=== PATIENT | female | born 1995 | race Caucasian/White ===

== ENCOUNTER 2023-04-12 23:47 | Emergency (ER) | payer OTHER ==
[2023-04-12 23:57] VITALS: TEMP 97.5
--- NOTE | 2023-04-13 00:05 | ERPHSYRPT ---
- History of Present Illness Time Seen by Provider: 04/13/23 00:05 Source: patient Exam Limitations: clinical condition Physician History: 28-year-old female presents emergency room with a 3-day history of left ear pain. She was seen at a nearby emergency room last night was told that she had blood in her eardrum and was prescribed antibiotic and told to take Tylenol and NSAIDs as needed for pain control. They were unable to get the antibiotic picked up today so she is not started any treatment at this time. Her pain is 10 out of 10 in severity and now surrounds her entire ear and into the bones of her face and skull. She has never had pain like this before. No fevers reported. She has had nausea and vomiting over the past 3 to 4 hours. Last time she took ibuprofen was approximately 5 PM. Timing/Duration: abrupt onset Severity: severe ENT Location: ear (L) Prearrival Treatment: over the counter meds Modifying Factors: Improves With: nothing Associated Symptoms: ear pain (L), chills, change in hearing, facial pain/swelling, headache, neck pain, swollen glands, No fever Allergies/Adverse Reactions: amoxicillin [From Augmentin] Adverse Reaction (Verified 04/13/23 00:06) clavulanic acid [From Augmentin] Adverse Reaction (Verified 04/13/23 00:06) - Review of Systems Constitutional: Chills Eyes: No Symptoms Ears, Nose, & Throat: Ear Pain (left), Ear Discharge (blood), Hearing Changes Respiratory: No Symptoms Cardiac: No Symptoms Abdominal/Gastrointestinal: Nausea, Vomiting Skin: No Symptoms Neurological: Headache - Nursing Vital Signs Nursing Vital Signs: Initial Vital Signs Temperature 97.5 F 04/12/23 23:55 Pulse Rate 99 H 04/12/23 23:55 Respiratory Rate 18 04/12/23 23:55 Blood Pressure 131/96 04/12/23 23:55 O2 Sat by Pulse Oximetry 99 04/12/23 23:55 Pain Scale Pain Intensity 3 - Physical Exam General Appearance: severe distress, alert Eye Exam: left eye: normal inspection, EOMI Ear Exam: right ear: auricle normal, canal normal, TM normal, left ear: bleeding, erythema, tenderness (left mastoid), TM perforation Nasal Exam: normal inspection, sinus tenderness Neck Exam: supple, full range of motion, lymphadenopathy (L), tender lateral Cardiovascular/Respiratory Exam: regular rate/rhythm, no respiratory distress Neurologic Exam: alert, oriented x 3, No disoriented, No motor weakness, No slurred speech Skin Exam: normal color, warm, dry, No rash SpO2 Interpretation: normal SpO2: 99 O2 Delivery: Room Air Ordered Tests: Active Orders 24 hr Category Date Time Status HEAD WITHOUT CONTRAST [CT] Stat Exams 04/13/23 00:08 Completed BMP Stat Lab 04/13/23 00:31 Completed CBC Stat Lab 04/13/23 00:31 Completed ESR [Erythrocyte Sedimentation Rate] Stat Lab 04/13/23 00:31 Completed Medication Summary Discontinued Medications Generic Name Dose Route Start Last Admin Trade Name Wendy PRN Reason Stop Dose Admin Hydrocodone Bitart/Acetaminophen 1 tablet 04/13/23 00:07 04/13/23 00:19 Hydrocodone/Acetamin 10-325 Mg Tablet PO 04/13/23 00:08 1 tablet STAT ONE Administration Hydrocodone Bitart/Acetaminophen Confirm 04/13/23 00:12 Hydrocodone/Acetamin 10-325 Mg Tablet Administered 04/13/23 00:13 Dose 1 tablet .ROUTE .STK-MED ONE Ceftriaxone Sodium 1,000 mg 04/13/23 00:09 04/13/23 00:19 Ceftriaxone Sodium 1000 Mg Inj Vial IM 04/13/23 00:10 1,000 mg STAT ONE Administration Ceftriaxone Sodium Confirm 04/13/23 00:13 Ceftriaxone Sodium 1000 Mg Inj Vial Administered 04/13/23 00:14 Dose 1,000 mg .ROUTE .STK-MED ONE Ceftriaxone Sodium/Dextrose 1 g in 50 mls @ 100 mls/hr 04/13/23 00:06 04/13/23 00:21 Rocephin 1 Gm-D5w 50 Ml Bag IV 04/13/23 00:35 Not Given STAT STA Ketorolac Tromethamine 60 mg 04/13/23 00:06 04/13/23 00:18 Ketorolac Tromethamine 30 Mg/Ml Inj IM 04/13/23 00:07 60 mg STAT ONE Administration Ketorolac Tromethamine Confirm 04/13/23 00:12 Ketorolac Tromethamine 30 Mg/Ml Inj Administered 04/13/23 00:13 Dose 60 mg .ROUTE .STK-MED ONE Lidocaine HCl Confirm 04/13/23 00:15 Lidocaine Hcl 1% 20 Ml Mdv 20 Ml Ml Administered 04/13/23 00:16 Dose 2 ml .ROUTE .STK-MED ONE Ondansetron HCl 4 mg 04/13/23 00:54 04/13/23 00:58 Zofran 4 Mg/Udtablet Orally Disintegrating PO 04/13/23 00:55 4 mg STAT ONE Administration Ondansetron HCl Confirm 04/13/23 00:57 Zofran 4 Mg/Udtablet Orally Disintegrating Administered 04/13/23 00:58 Dose 4 mg .ROUTE .STK-MED ONE Lab/Rad Data: Laboratory Result Diagrams 04/13/23 00:31 04/13/23 00:31 Laboratory Results 04/13/23 04/13/23 Range/Units 00:31 00:31 WBC 18.4 H (4.0-10.5) x10^3/uL RBC 4.81 (4.1-5.4) x10^6/uL Hgb 13.5 (12.0-16.0) g/dL Hct 42.4 (35-47) % MCV 88.1 (78-100) fL MCH 28.1 (26-32) pg MCHC 31.8 L (32-36) g/dL RDW 12.9 (11.5-14.0) % Plt Count 292 (150-450) x10^3/uL MPV 9.5 (7.5-11.0) fL ESR 31 H (0-20) mm/hr Sodium 140 (137-145) mmol/L Potassium 3.4 L (3.5-5.1) mmol/L Chloride 104 (98-107) mmol/L Carbon Dioxide 20 L (22-30) mmol/L Anion Gap 18.9 H (5-15) MEQ/L BUN 8 (7-17) mg/dL Creatinine 0.59 (0.52-1.04) mg/dL Estimated GFR > 60.0 ML/MIN Glucose 100 (74-106) mg/dL Calcium 9.4 (8.4-10.2) mg/dL - Progress Progress: improved Progress Note: 04/13/23 00:20 1.5cc of 2% lidocaine w/o epi placed in the ear canal. Pain down to 3/10 after Toradol, Archer 1g Rocephin given IM Spoke w/ Dr. Hernandez at 0203 who recommended consulting due to [facility] not having a surgeon who performs operations on the mastoid. 0320 I spoke w/ ENT from who reviewed the CT scan and felt that there was no bony involvement, no concern for mastoiditis. Recommended Ciprodex gtts. Counseled pt/family regarding: lab results, diagnosis, need for follow-up, rad results Medical Desision Making - Diagnostic Testing Diagnostic test were ordered, analyzed, and reviewed by me: Yes Radiological Interpretation: Interpreted by me, Reviewed by me, Teleradiologist Report - Risk of complications The pt has a mod risk of morbidity or mortality based on: Need for prescription drug management - Departure Departure Disposition: Home Clinical Impression: Hematotympanum of left ear, Otalgia of left ear, Mastoid pain, Otitis media Condition: Good Critical Care Time: No Referrals: DOCTOR,NO FAMILY [Primary Care Provider] - Follow up/PCP as directed ROCK HERNANDEZ [NON-STAFF PHY W/O PRIVILEGES] - Follow Up with PCP/3 days Instructions: Ruptured eardrum Prescriptions: Ciprofloxacin HCl/Dexameth [Ciproflox-Dexameth Otic Susp] 7.5 ml OT BID 7 Days Hydrocodone/Acetaminophen [Hydrocodone-Acetamin 10-325 mg] 1 tablet PO TID PRN #21 tablet MDD 3 tablets PRN Reason: Pain Cephalexin Mh 500 mg [Keflex 500 mg] 500 mg PO TID 7 Days #21 cap
[2023-04-13] MEDS ORDERED: TORAdol 30 mg Injection IM ONE (00:06)
[2023-04-13] MEDS ORDERED: ROCEPHIN 1 Gm-D5w 50 ml Bag** 1 G/50 ML IVPB IV STA (00:06)
[2023-04-13] MEDS ORDERED: HYDROCODONE-ACETAMIN 10-325 MG PO ONE (00:07)
[2023-04-13] MEDS ORDERED: Rocephin 1000 MG INJ IM ONE (00:09)
[2023-04-13] MEDS ORDERED: TORAdol 30 mg Injection ONE (00:12)
[2023-04-13] MEDS ORDERED: HYDROCODONE-ACETAMIN 10-325 MG ONE (00:12)
[2023-04-13] MEDS ORDERED: Rocephin 1000 MG INJ ONE (00:13)
[2023-04-13] MEDS ORDERED: XYLOCAINE 1% HCL 20 ML MDV ONE (00:15)
[2023-04-13 00:33] LABS: Hematocrit 42.4 % (35-47); Hemoglobin 13.5 g/dL (12.0-16.0); Mean Cell Volume 88.1 fL (78-100); Mean Corpuscular Hemoglobin 28.1 pg (26-32); Mean Corpuscular Hgb Concent. 31.8 g/dL (32-36); Mean Platelet Volume 9.5 fL (7.5-11.0); Platelet Count 292 x10^3/uL (150-450); Red Blood Count 4.81 x10^6/uL (4.1-5.4); Red Cell Distribution Width 12.9 % (11.5-14.0); White Blood Count 18.4 x10^3/uL (4.0-10.5)
[2023-04-13 00:41] LABS: Erythrocyte Sedimentation Rate 31 mm/hr (0-20)
[2023-04-13 00:46] LABS: ANION GAP 18.9 MEQ/L (5-15); BLOOD UREA NITROGEN 8 mg/dL (7-17); CHLORIDE 104 mmol/L (98-107); Calcium 9.4 mg/dL (8.4-10.2); Carbon Dioxide 20 mmol/L (22-30); Creatinine 1 0.59 mg/dL (0.52-1.04); EST GLOMERULAR FILTRATION RATE > 60.0 ML/MIN; Glucose 100 mg/dL (74-106); Potassium 3.4 mmol/L (3.5-5.1); SODIUM 140 mmol/L (137-145)
[2023-04-13] MEDS ORDERED: ZOFRAN ODT 4 MG PO ONE (00:54)
[2023-04-13] MEDS ORDERED: ZOFRAN ODT 4 MG ONE (00:57)
--- NOTE | 2023-04-13 00:57 | XRAY ---
CLINICAL HISTORY:mastoid pain COMPARISON:None. TECHNIQUE:Axial non-contrast CT scan of the brain was performed from the skull base to the high parietal region. Coronal and sagittal re constructions were also obtained. FINDINGS: The visualized brain parenchyma shows normal appearance. Kennedy-white matter differentiation is maintained. No midline shifts or deformity. No intracerebral or extra axial hematoma. Normal size and configuration of the cerebral ventricles with mild asymmetry of the lateral ventricles. Normal CT appearance of the posterior fossa structures namely the cerebellar hemispheres, brainstem and cerebellar peduncles. The IACs are unremarkable. The cerebello-pontine angles are clear. The osseous structures in the skull base are unremarkable. No definite calvarium fractures. Ill defined hypodensities are seen involving the left middle ear cleft and left mastoid air cells. Circumferential mucosal thickening in the right maxillary sinus, and prominent mucosal thickening with air fluid level in the left maxillary sinus. Prominent mucosal thickening in the ethmoidal air cells. IMPRESSION: 1. Ill defined hypodensities involving the left middle ear cleft and left mastoid air cells, possibly inflammatory (otomastoiditis). Advise clinical correlation. 2. Bilateral maxillary and ethmoidal sinusitis. 3. Mild asymmetry of the lateral ventricles, likely developmental. 4. Unremarkable rest of non-enhanced CT study for the brain. Electronically Signed by: Alix Gray MD. (04/12/2023 23:56:37 [employer])
[2023-04-13 03:32] VITALS: BP 103/63; PULSE 88; RESP 20
[2023-04-13 03:34] VITALS: O2SAT 99
== END 2023-04-13 03:55 | disposition home or self-care (01) ==
LOC: ED 23:47
DX: H73.892 Other specified disorders of tympanic membrane, left ear (principal); H92.02 Otalgia, left ear; H66.92 Otitis media, unspecified, left ear; R11.2 Nausea with vomiting, unspecified; Z79.891 Long term (current) use of opiate analgesic
CPT/HCPCS: 36415; 70450; 80048; 85027; 85652; 96372; 99284; J0696; J1885; Q0162; A9270-GY